=== PATIENT | female | born 1995 | race Caucasian/White ===

== ENCOUNTER 2020-08-27 16:58 | Emergency (ER) | payer OTHER ==
[~2020-08-27 16:58] MED LIST: AMOXICILLIN500 MG PO; ERYTHROMYCIN O3.5 GM OD; MACROBID 100 M100 MG PO
[2020-08-27 18:39] LABS: RED BLOOD COUNT 3.6 M/UL (4.00-5.10); WHITE BLOOD COUNT 7.3 K/UL (4.5-11.0)
[2020-08-27 19:10] LABS: BUN/CREATININE RATIO 6 (0-10)
[2020-08-27] MEDS ORDERED: MIRALAX 119 GR119 GM PO (20:21)
[2020-08-27] MEDS ORDERED: ZOFRAN4 MG PO (20:21)
[2020-08-27] MEDS ORDERED: BENTYL 20MG TAB20 MG PO (20:21)
== END 2020-08-27 20:35 | disposition home or self-care (01) ==
LOC: ER1 16:58
PROVIDERS: Physician Assistant Medical
DX: R10.12 Left upper quadrant pain (principal); R11.0 Nausea; K21.9 Gastro-esophageal reflux disease without esophagitis; Z90.89 Acquired absence of other organs; Z79.899 Other long term (current) drug therapy
CPT/HCPCS: 80053; 81001; 82150; 83690; 84703; 85025; 96374; 96375; 99284; J1885; J2270; J2405; Q9967

== ENCOUNTER 2020-10-08 15:52 | Emergency (ER) | payer OTHER ==
[~2020-10-08 15:52] MED LIST changes: +BENTYL 20MG TAB20 MG PO; +MIRALAX 119 GR119 GM PO; +ZOFRAN4 MG PO
[2020-10-08] MEDS ORDERED: IBUPROFEN600 MG PO (17:52)
[2020-10-08] MEDS ORDERED: CYCLOBENZAPRINE5 MG PO (17:52)
== END 2020-10-08 20:15 | disposition home or self-care (01) ==
LOC: ER1 15:52
DX: S09.90XA Unspecified injury of head, initial encounter (principal); S13.4XXA Sprain of ligaments of cervical spine, initial encounter; S33.5XXA Sprain of ligaments of lumbar spine, initial encounter; S23.3XXA Sprain of ligaments of thoracic spine, initial encounter; J45.909 Unspecified asthma, uncomplicated; F17.200 Nicotine dependence, unspecified, uncomplicated; Z79.899 Other long term (current) drug therapy; Y04.2XXA Assault by strike against or bumped into by another person, initial encounter; Y92.009 Unspecified place in unspecified non-institutional (private) residence as the place of occurrence of the external cause
CPT/HCPCS: 70450; 72072; 72100; 72125; 72170; 81001; 84703; 99284

== ENCOUNTER 2020-11-16 16:51 | Emergency (ER) | payer OTHER ==
[~2020-11-16 16:51] MED LIST changes: +CYCLOBENZAPRINE5 MG PO; +IBUPROFEN600 MG PO
[2020-11-16 18:31] LABS: HEMOGLOBIN 10.6 gm/dl (12.3-15.3); RED BLOOD COUNT 3.36 M/UL (4.00-5.10); WHITE BLOOD COUNT 5.3 K/UL (4.5-11.0)
[2020-11-16 18:39] LABS: BUN/CREATININE RATIO 11 (0-10)
[2020-11-16] MEDS ORDERED: ZOFRAN4 MG PO (20:27)
== END 2020-11-16 20:36 | disposition home or self-care (01) ==
LOC: ER1 16:51
PROVIDERS: Physician Assistant; Preventive Medicine Occupational Medicine
DX: B34.9 Viral infection, unspecified (principal); Z20.822 Contact with and (suspected) exposure to COVID-19; F17.200 Nicotine dependence, unspecified, uncomplicated
CPT/HCPCS: 0240U; 71045; 80053; 80307; 81001; 82550; 82553; 83874; 84484; 84703; 85025; 86403; 87081; 87880; 93005; 96374; 99285; J2405; J7030

== ENCOUNTER 2021-03-14 19:34 | Emergency (ER) | payer OTHER ==
[2021-03-14] MEDS ORDERED: ALL DAY ALLERGY10 M2 PO (20:05)
[2021-03-14] MEDS ORDERED: PREDNISONE 10 M10 MG PO (20:05)
== END 2021-03-14 20:19 | disposition home or self-care (01) ==
LOC: ER1 19:34
DX: H10.12 Acute atopic conjunctivitis, left eye (principal); J45.909 Unspecified asthma, uncomplicated; Z90.89 Acquired absence of other organs; F17.210 Nicotine dependence, cigarettes, uncomplicated
CPT/HCPCS: 99283

== ENCOUNTER → 2021-05-24 | Emergency (ER) | payer OTHER ==
[~2021-05-24] MED LIST changes: +ALL DAY ALLERGY10 M2 PO; +PATADAY5 ML OP; +PREDNISONE 10 M10 MG PO; +PREDNISONE 20 M20 MG PO
== END | disposition home or self-care (01) ==
LOC: ER1 00:03
DX: H10.11 Acute atopic conjunctivitis, right eye (principal); Z20.822 Contact with and (suspected) exposure to COVID-19
CPT/HCPCS: 99283; U0003

== ENCOUNTER 2021-05-31 00:20 | Emergency (ER) | payer OTHER ==
[2021-05-31 04:39] LABS: HEMOGLOBIN 12.5 gm/dl (12.3-15.3); RED BLOOD COUNT 4.02 M/UL (4.00-5.10); WHITE BLOOD COUNT 10.5 K/UL (4.5-11.0)
[2021-05-31 05:06] LABS: BUN/CREATININE RATIO 17 (0-10)
== END 2021-05-31 06:45 | disposition home or self-care (01) ==
LOC: ER1 00:20
PROVIDERS: Physician Assistant
DX: B34.9 Viral infection, unspecified (principal); R53.83 Other fatigue; F17.210 Nicotine dependence, cigarettes, uncomplicated; R11.0 Nausea; Z20.822 Contact with and (suspected) exposure to COVID-19
CPT/HCPCS: 0240U; 71045; 80053; 81001; 83735; 84439; 84443; 85025; 85652; 86140; 87081; 87880; 99284